=== PATIENT | female | born 1995 | race Caucasian/White ===

== ENCOUNTER → 2016-04-10 17:36 | Observation (INO) ==
[2016-04-10 16:47] VITALS: BP 131/72
--- NOTE | 2016-04-10 17:20 | OB/GYN Progress Note ---
Date of Encounter: 04/10/16 Time of Encounter: 17:18 - Assessment and Plan (1) 39 weeks gestation of Current Visit: Yes Status: Acute NST reactive. No cervical change since last visit. movement noted once in L&D. Discharge home with precautions. (2) Decreased movement Current Visit: Yes Status: Acute (3) False labor Current Visit: Yes Status: Acute Subjective - Subjective Interval history: 20 year-old presenting at 39 weeks with c/o contractions and decreased movement. She reports that the baby started moving since she arrived to triage. No bleeding or LOF. No other complaints. Antepartum ROS: contractions, no loss of fluid, no vaginal bleeding, no movement normal Objective - Vital Signs Vital Signs: Vital Signs Temp Pulse Resp BP 04/10/16 16:46 97.1 F L 114 16 131/72 Intake and Output 04/10/16 04/10/16 04/10/16 07:59 15:59 23:59 Other: Weight 129 kg Patient Weight 04/10/16 23:59 Weight 129 kg - Exam FHR: category 1 FHR comments: 135 BPM, reactive NST Abdomen: Present: soft, gravid. Absent: tenderness Uterus: Present: normal. Absent: tenderness Cervical dilation: ft
== END | disposition home or self-care (01) ==
LOC: 1NENULAB
PROVIDERS: ADMIT Obstetrics & Gynecology; ATTEND Obstetrics & Gynecology

== ENCOUNTER 2016-04-12 14:43 | Inpatient (IN) ==
[2016-04-12] MEDS ORDERED: Naloxone 0.4 MG/ML INJ IVP PRN (14:50)
[2016-04-12] MEDS ORDERED: Famotidine 20 MG/2 ML VIAL IVP PRN (14:50)
[2016-04-12] MEDS ORDERED: Ondansetron 4 MG/2 ML VIAL IVP PRN (14:50)
[2016-04-12] MEDS ORDERED: Acetaminophen 325 MG TABLET PO PRN (14:54)
[2016-04-12] MEDS ORDERED: Ringers Solution, Lactated 1,000 ML IVC SCH (15:00)
[2016-04-12 15:29] LABS: Basophils % 0.2 %; Eosinophils # 0.2 K/mcL (0.0-0.6); Eosinophils % 1.7 %; Hematocrit 30.7 % (35.3-44.9); Hemoglobin 9.6 g/dL (11.5-15.4); Immature Granulocytes % 0.9 % (0-4); Lymphocytes # 1.6 K/mcL (0.6-4.6); Lymphocytes % 16.2 %; Mean Corpuscular HGB Conc 31.3 g/dL (31.6-35.5); Mean Corpuscular Hemoglobin 24.9 pg (28.0-33.3); Mean Corpuscular Volume 79.7 fL (83.0-100.0); Mean Platelet Volume 9.7 fL (9.4-12.4); Monocytes # 0.7 K/mcL (0.0-1.3); Monocytes % 7.5 %; Neutrophils # 7.2 K/mcL (1.6-8.9); Platelet Count 246 K/mcL (140-400); Red Blood Count 3.85 M/mcL (3.82-4.97); Red Cell Distribution Width 15.2 % (11.5-14.5); Segmented Neutrophils % 73.5 %
--- NOTE | 2016-04-12 15:46 | OB/GYN History & Physical ---
Date of Encounter: 04/12/16 Time of Encounter: 15:42 Assessment and Plan (1) Oligohydramnios in torres in third trimester Current visit: Yes Status: Acute (2) 40 weeks gestation of Current visit: Yes Status: Acute admit for IOL for borderline oligohydramnios. Will initiate induction with cytotec at midnight. Pt may eat, p-lock, and ambulate, with ambien at HS Plan discussed with Dr. Santiago. History of Present Illness Chief complaint: admit for IOL HPI: Ms. Willett is a 20 year old female presents for induction due to boarderline oligohydramnios and term gestation. Pt states feels well + movement, denies leaking of fluid or vaginal bleeding. Uncomplicated course. CNM patient. Labs: B-, Rubella immune, serologies negative Past Med Surg Social Fam HX - Past Medical History Source: patient Medical history: no medical history, asthma (as child but no medication or attacks as adult) Psychiatric history: no psych history - Past Surgical History Surgical History: no surgical history - Social History Smoking Status: Never smoker Smokeless Tobacco Status: No Alcohol use: none Drug use: none - Family History Mother Living Status: Still Living Obstetrical History - Pregnancies : 4 Para: 0 Term: 0 : 0 Ab's: 3 Livin Medications and Allergies Caplet 1 / PO DAILY 09/22/15 [History] Allergies codeine Adverse Reaction (Verified 06/22/15 19:20) Vomiting Review of System OB All systems PM: reviewed and no additional remarkable complaints except as stated Exam - Constitutional Constitutional: well developed, well nourished, no acute distress - Neck Neck exam: full ROM - Lungs Respiratory exam: CTAB - Cardiovascular Cardiovascular exam: RRR, +S1, +S2 - Abdomen Abdomen: Present: bowel sounds normal, gravid, non tender - Extremities Extremities exam: normal inspection - Uterus Uterus exam: Present: normal size, normal contour - Comments Comments: FHT 125/+accels/- decels/ Cat I tracing Results Result Diagrams: 04/12/16 15:15 Abnormal lab results Hgb 9.6 g/dL (11.5-15.4) L 04/12/16 15:15 Hct 30.7 % (35.3-44.9) L 03/02/17 15:15 MCV 79.7 fL (83.0-100.0) L 04/12/16 15:15 MCH 24.9 pg (28.0-33.3) L 04/12/16 15:15 MCHC 31.3 g/dL (31.6-35.5) L 04/12/16 15:15 RDW 15.2 % (11.5-14.5) H 04/12/16 15:15 All other labs normal. - VTE Reasons for not Prescribing Prophylaxis: Treatment not Indicated - Low risk for VTE
[2016-04-13] MEDS ORDERED: miSOPROStol 25 MCG TABLET VG PRN (00:01)
[2016-04-13] MEDS ORDERED: Penicillin G Potassium 5,000,000 UNIT in D5% in Water (Mini-Bag+) 100 ML IVPB ONE (00:01)
[2016-04-13] MEDS: Penicillin G Potassium 2,500,000 UNIT in D5% in Water 100 ML IVPB SCH ×4 (04:08→16:46)
--- NOTE | 2016-04-13 06:03 | OB Labor Progress Note ---
Date of Encounter: 04/13/16 Time of Encounter: 06:02 Labor Progress Note - Subjective Subjective: Pt reports minimal discomfort with contractions. - Cervix Cervix: 3/80/-1 - Heart Tones Heart Tones: Category I - Kaylor Kaylor: 2-4 minutes - Interventions Interventions: Nicholson balloon placement attempted using sterile technique. AROM inadvertently performed. Nicholson removed. IUPC placed. - Plan Plan: Continue to monitor. Frequent repositioning. Epidural when requested. Anticipate .
[2016-04-13] MEDS ORDERED: Ringers Solution, Lactated 500 ML IVC ONE (07:00)
[2016-04-13] MEDS ORDERED: Epidural Premix (fent/bupiv) 110 ML EP SCH (07:00)
[2016-04-13] MEDS ORDERED: *HR* Ropivacaine/PF 0.2% 10 ML AMPUL EP ONE (07:00)
[2016-04-13] MEDS ORDERED: *HR* FentaNYL (PF) 100 MCG/2 ML VIAL EP ONE (07:00)
[2016-04-13] MEDS ORDERED: EPHEDrine 50 MG/ML VIAL IVP PRN (07:00)
--- NOTE | 2016-04-13 07:00 | Anesthesia Evaluation PreOp ---
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 No family history of issues.) : Yes Alcohol Use: none Drug use: none Medications and Allergies Caplet 1 / PO DAILY 09/22/15 [History] Allergies codeine Adverse Reaction (Verified 06/22/15 19:20) Vomiting - Meds/Allergy Pre-op Review Medications Reviewed: Yes Allergies Reviewed: Yes Beta Blockers on Current Med List: No Anesthesia Results - Labs 04/12/16 15:15 Anesthesia Exam Last Vital Signs Temp 98.0 F 04/12/16 15:29 Pulse 95 04/12/16 15:29 Resp 14 04/12/16 15:29 BP 131/63 04/12/16 15:29 Pulse Ox 99 04/12/16 15:29 Height: 1.68m Weight: 128.2kg NPO (# of Hours): >4 Pain Scale: 8 Pain Scale Used: Numeric (1 - 10) - HEENT Pupil (Motor): Pupils equal Mallampati: II Teeth: Normal Oral Opening: Greater than 3 - JETTING MACHINE OPERATOR LOC: Oriented JETTING MACHINE OPERATOR Motor: Normal RUE, Normal LUE, Normal RLE, Normal LLE, Normal Face JETTING MACHINE OPERATOR Sensory: Normal: RUE, LUE, RLE, LLE, Face - Cardiac Rhythm: Regular Murmur: None JVD: No Carotid Bruit: No - Pulmonary Breath Sounds: bilateral Clear Respiratory Effort: Symmetrical Anesthesia Assess/Plan ASA Score: 2 Modified [place] Scale for Level of Consciousness: Cooperative, oriented, and tranquil Anesthetic Plan: Regional Autologous Blood: Yes Monitoring Plan: Standard Monitors Recovery Plan: Other
[2016-04-13] MEDS ORDERED: *HR* FentaNYL (PF) 100 MCG/2 ML VIAL ONE (07:03)
[2016-04-13] MEDS ORDERED: Epidural Premix (fent/bupiv) 110 ML EP ONE ×2 (07:03→14:37)
[2016-04-13] MEDS ORDERED: *HR* Ropivacaine/PF 0.2% 10 ML AMPUL ONE (07:03)
--- NOTE | 2016-04-13 08:00 | Anesthesia Procedures ---
Date of Encounter: 04/13/16 Time of Encounter: 07:58 Procedures: Anesthesia - Epidural/Spinal Patient ID/Chart reviewed: Yes Patient examined: Yes OB Eval: Gestational age: 40 OB Eval: : 4 OB Eval: Hx Para: 0 OB Eval: Dilated at (cm): 4 OB Eval: Contractions: Non-stressed pattern Consent Obtained: Yes Supplemental Oxygen: None/Room Air Site Prep: Aseptic Technique, Sterile prep and drape, Povidone-Iodine 1% Patient position: upright Local Anesthetic: Lidocaine 1% Amount of Local Anesthetic used: 3 Touhy Needle Gauge: 18 Touhy Needle Depth (cm): 9 Catheter Depth at Skin (cm): 15 Test Dose (1.5% Lido + Epi): Volume given (mls): 5 Test Dose Result: Negative Loading Dose: Other: 5ml of 0.2%rop/100mcg fentanyl Loading Dose Administered: Thru Catheter Infusion Med: 0.125% Bupivacaine w/ 2 mcg/ml Fentanyl Infusion Rate (mls/hr): 14 ([id number]) Catheter Secured in Place: Tegaderm, Tape Interspace Used: L4-L5 Loss of Resistance (ROSE): Yes Blood: No CSF: No Paresthesia: No Procedure: pt tolerated procedure well. no complications. vss. fhr stable 117/72 hr 86 121/82 hr 92 123/76 hr 101 fhr 125, 126, 128
[2016-04-13] MEDS ORDERED: Oxytocin 20 units/ LR 1000 mL 20 UNIT/1,000 ML BAG IVC SCH (09:15)
--- NOTE | 2016-04-13 13:12 | OB Labor Progress Note ---
Date of Encounter: 04/13/16 Time of Encounter: 13:10 Labor Progress Note - Subjective Subjective: Patient resting comfortable in bed with epidural in place. Discussed POC with patient. Patient denies any questions or concerns. - Cervix Cervix: 4.5/100/-1 - Heart Tones Heart Tones: 120 bpm moderate variability +15x15 accels no decels noted. - Jud Jud: 2-3 min apart - Interventions Interventions: SVE, repositioning with peanut ball. - Plan Plan: Continue labor management.
--- NOTE | 2016-04-13 16:08 | OB Labor Progress Note ---
Date of Encounter: 04/13/16 Time of Encounter: 16:06 Labor Progress Note - Subjective Subjective: Patient resting comfortably with epidural in place. Pitocin at 4 milliunits. - Cervix Cervix: 6/100/0 - Heart Tones Heart Tones: 135 bpm moderate variability +15x15 accels no decels noted. CAt. 1 tracing. - Laconia Laconia: 2-3 min apart - Interventions Interventions: SVE, patient repositioned with peanut ball at this time. - Plan Plan: Continue labor management.
[2016-04-13] MEDS ORDERED: Lidocaine 1% 20 ML MDV ONE (19:10)
[2016-04-13] MEDS ORDERED: Methylergonovine 0.2 MG/ML AMPUL IM ONE (19:41)
--- NOTE | 2016-04-13 19:46 | OB/GYN Procedure Note ---
Delivery - Delivery Date: 04/13/16 Provider: Berenice Dickey (Dr. Whitfield at bedside) Intrapartum events: none Delivery induction: AROM, oxytocin, misoprostol Delivery monitor: external FHT, external uterine, internal uterine Anesthesia: local, epidural Estimated Blood Loss: 400 - (s) A Infant Delivery Date: 04/13/16 Delivery Time: 19:13 Presentation: vertex Position: CALLIE Route of delivery: Gender: Female Viability: Viable Pounds: 8 Ounces: 5 Weight Gram: 3785 kg at 1 minute: 8 at 5 mins: 9 Shoulder Dystocia: not encountered Specimens collected: cord blood Placenta: spontaneous Cord: 3 umbilical vessels - Repair Episiotomy: none Laceration Description: Periurethral, Labial (left labial repaired with 4-0 vicryl.) - Complications Delivery complications: none Delivery comments: Called to LDR, patient reports she needs to push. Anterior cervix noted but was reduced with 1 push. Patient was placed in stirrups and began pushing with contractions. After approximately 60 min head was however retracted back in after pushing. Dr. Whitfield was called to LDR for potential shoulder dystocia. Patient spontaneously delivery a female . No nuchal, shoulder dystocia noted, terminal meconium noted. Infant was placed on maternal abdomen. Cord was clamped and cut after pulsation ceased. was placed skin to skin. A right periurethral laceration noted that was hemostatic and left labial that was repaired with 4-0 vicryl. 1% lidocaine was used to anesthetize site. Patient tolerated well. Placenta delivered spontaneously a Large gush of blood followed delivery of placenta. Uterus was massaged, IV pitocin bolus was started and methergine was given IM. Both Mother and are stable in LDR for recovery. - Disposition Mom disposition: stable in LDR disposition: stable in LDR
[2016-04-13] MEDS ORDERED: Benzocaine/Menthol 56 GM AEROSOL SPRAY TP PRN (21:28)
[2016-04-13] MEDS ORDERED: Lanolin 7 G OINT...G. TP PRN (21:28)
[2016-04-13] MEDS ORDERED: Rho Immune Globulin 1,500 UNIT SYRINGE IM PRN (23:19)
[2016-04-13] MEDS ORDERED: Acetaminophen 325 MG TABLET PO PRN (23:19)
[2016-04-13] MEDS ORDERED: Ondansetron ODT 4 MG TAB.RAPDIS SL PRN (23:25)
[2016-04-13] MEDS ORDERED: Oxytocin 20 units/ LR 1000 mL 20 UNIT/1,000 ML BAG IV SCH (23:30)
[2016-04-14 02:59] LABS: Basophils % 0.1 %; Eosinophils % 0.1 %; Hematocrit 25.7 % (35.3-44.9); Hemoglobin 8.1 g/dL (11.5-15.4); Immature Granulocytes % 0.6 % (0-4); Immature Platelets 3.2 % (1.1-6.1); Lymphocytes # 1.3 K/mcL (0.6-4.6); Lymphocytes % 6.6 %; Mean Corpuscular HGB Conc 31.5 g/dL (31.6-35.5); Mean Corpuscular Hemoglobin 25.1 pg (28.0-33.3); Mean Corpuscular Volume 79.6 fL (83.0-100.0); Mean Platelet Volume 9.7 fL (9.4-12.4); Monocytes % 7.9 %; Neutrophils # 16.6 K/mcL (1.6-8.9); Platelet Count 232 K/mcL (140-400); Red Blood Count 3.23 M/mcL (3.82-4.97); Red Cell Distribution Width 15.2 % (11.5-14.5); Segmented Neutrophils % 84.7 %
[2016-04-14 03:00] LABS: Monocytes # 1.6 K/mcL (0.0-1.3)
[2016-04-14] MEDS ORDERED: Prenatal Vit/FA 1 EACH TABLET PO SCH (09:00)
--- NOTE | 2016-04-14 09:01 | Discharge Summary ---
Date of Encounter: 04/14/16 Time of Encounter: 08:57 - Discharge Diagnosis (1) Vaginal delivery Priority: Primary Status: Acute Comments: Continue routine care discharge home today follow up with LUNA Ng in 4-6 weeks (2) Breast feeding status of mother Priority: Secondary Status: Acute Comments: support prn (3) Anemia Priority: Secondary Status: Acute Comments: Continue ferrous sulfate BID Qualifiers: Anemia type: unspecified type Qualified Code(s): D64.9 - Anemia, unspecified - Discharge Medications Prescriptions: Ibuprofen 800 mg PO Q8HR PRN #60 tablet PRN Reason: Pain Breast Pump [BREAST PUMP] 1 each .ROUTE AD #1 each Ferrous Sulfate 325 mg PO BIDWM #60 tablet Home Medications: Caplet 1 / PO DAILY 09/22/15 [History] Breast Pump [BREAST PUMP] 1 each .ROUTE AD #1 each 04/14/16 [Rx] Ferrous Sulfate 325 mg PO BIDWM #60 tablet 04/14/16 [Rx] Ibuprofen 800 mg PO Q8HR PRN #60 tablet 04/14/16 [Rx] Vit/FA 1 each PO DAILY tablet 04/14/16 [Rx] Allergies/Adverse Reactions: Allergies codeine Adverse Reaction (Verified 06/22/15 19:20) Vomiting Data Procedures and tests throughout hospitalization: Laboratory Tests 04/12/16 04/14/16 15:15 02:51 WBC 9.8 19.6 H D RBC 3.85 3.23 L Hgb 9.6 L 8.1 L D Hct 30.7 L 25.7 L MCV 79.7 L 79.6 L MCH 24.9 L 25.1 L MCHC 31.3 L 31.5 L RDW 15.2 H 15.2 H Plt Count 246 232 MPV 9.7 9.7 Immature Gran % 0.9 0.6 Seg Neutrophils % 73.5 84.7 Lymphocytes % 16.2 6.6 Monocytes % 7.5 7.9 Eosinophils % 1.7 0.1 Basophils % 0.2 0.1 Neutrophils # 7.2 16.6 H Lymphocytes # 1.6 1.3 Monocytes # 0.7 1.6 H Eosinophils # 0.2 0.0 Basophils # 0.0 0.0 Immature Plt Fraction 3.2 Labs on day of discharge: Labs from last 24 hours 04/14/16 02:51 WBC 19.6 H D RBC 3.23 L Hgb 8.1 L D Hct 25.7 L MCV 79.6 L MCH 25.1 L MCHC 31.5 L RDW 15.2 H Plt Count 232 MPV 9.7 Immature Gran % 0.6 Seg Neutrophils % 84.7 Lymphocytes % 6.6 Monocytes % 7.9 Eosinophils % 0.1 Basophils % 0.1 Neutrophils # 16.6 H Lymphocytes # 1.3 Monocytes # 1.6 H Eosinophils # 0.0 Basophils # 0.0 Immature Plt Fraction 3.2 Date of admission: 04/12/16 14:43 Primary care physician: PCP NO Consults: 04/13/16 23:20 Consult to Marine Electrician Helper [CONS] Routine Comment: Vaginal delivery, consult needed Discharging clinician: Berenice Dickey Anticipated date of discharge: 04/14/16 - Patient Status Disposition: Home, Self-Care Condition: Good Functional capacity at discharge: independent ambulation - Discharge Instructions Follow Up With: KATERINA,PCP [Primary Care Provider] - Berenice Dickey CNM [Non-Partnered Physician] - - Diet and Activity Activity: increase activity as tolerated Diet: regular diet Hospital Course Reason for admission: induction of labor Delivery: Episiotomy: none Laceration: other (right periurethral and left labial) complications: none Discharge diagnosis: IUP at term delivered Ducor baby: female (breast feeding) Time Attestation: Total time spent providing and/or coordinating discharge services: Time Spent: Less than 30 minutes Exam - Constitutional Vitals: Temp Pulse Resp BP Pulse Ox 98.4 F 97 16 97/62 97 04/14/16 07:30 04/14/16 07:30 04/14/16 07:30 04/14/16 07:30 04/14/16 03:13 General appearance IM: A&O X 3, pleasant, obese, answers questions appropriately - Respiratory Respiratory exam: Present: CTAB - Cardiovascular Cardiovascular exam IM: Present: RRR, +S1, +S2 - GI/Abdominal GI/Abdominal exam IM: normal bowel sounds - Uterine Tone: Firm Uterus Position: 1 Finger Below Umbilicus, Midline - Extremities Exam Extremities exam IM: Present: full ROM, normal capillary refill, normal inspection - Neurological Exam Additional comments: Patient denies feeling dizzy or light headed with ambulation.
[2016-04-14] MEDS ORDERED: Ibuprofen 600 MG TABLET PO PRN (09:08)
[2016-04-14] MEDS ORDERED: Rho Immune Globulin 1,500 UNIT SYRINGE IM PRN (15:40)
[2016-04-14 16:00] VITALS: BP 108/70
[2016-04-14] MEDS ORDERED: Methylergonovine 0.2 MG/ML AMPUL IM ONE (20:59)
== END 2016-04-14 21:00 | disposition home or self-care (01) | DRG 775 ==
LOC: 1NENULAB → OBSVTOIN 14:43 → 1NENUOBS 04-13 21:53

== ENCOUNTER 2019-05-05 21:37 | Inpatient (IN) ==
[~2019-05-05 21:37] MED LIST: *HR* FentaNYL (PF) 100 MCG/2 ML VIAL IVP PRN; Famotidine 20 MG/2 ML VIAL IVP PRN; Lidocaine 1% 20 ML MDV INFILT PRN; Metoclopramide 10 MG/2 ML VIAL IVP PRN; Naloxone 0.4 MG/ML INJ IVP PRN
[2019-05-05] MEDS ORDERED: Ringers Solution, Lactated 1,000 ML IVC SCH (21:45)
[2019-05-05 22:06] LABS: Basophils % 0.2 %; Eosinophils # 0.3 K/mcL (0.0-0.6); Eosinophils % 2.6 %; Hematocrit 33.6 % (35.3-44.9); Hemoglobin 10.4 g/dL (11.5-15.4); Immature Granulocytes % 0.4 % (0-4); Lymphocytes # 1.6 K/mcL (0.6-4.6); Lymphocytes % 16.1 %; Mean Corpuscular Hemoglobin 26.1 pg (28.0-33.3); Mean Corpuscular Volume 84.4 fL (83.0-100.0); Mean Platelet Volume 9.6 fL (9.4-12.4); Monocytes # 0.8 K/mcL (0.0-1.3); Monocytes % 8.6 %; Platelet Count 209 K/mcL (140-400); Red Blood Count 3.98 M/mcL (3.82-4.97); Red Cell Distribution Width 17.1 % (11.5-14.5); Segmented Neutrophils % 72.1 %; White Blood Count 9.7 K/mcL (4.3-11.1)
[2019-05-05 22:15] LABS: Amphetamine Screen,Urine Negative ng/mL (Cutoff=1000); Barbiturate Screen,Urine Negative ng/mL (Cutoff=200); Benzodiazepines Screen,Urine Negative ng/mL (Cutoff=200); Cannabinoid Screen,Urine Negative ng/mL (Cutoff = 50); Cocaine Screen,Urine Negative ng/mL (Cutoff= 300); Opiate Screen,Urine Negative ng/mL (Cutoff=300); Phencyclidine Screen,Urine Negative ng/mL (Cutoff=25)
[2019-05-05] MEDS ORDERED: EPHEDrine 50 MG/ML VIAL IVP PRN (23:12)
[2019-05-05] MEDS ORDERED: Epidural Premix (fent/bupiv) 110 ML EP SCH (23:15)
[2019-05-06] MEDS ORDERED: *HR* FentaNYL (PF) 100 MCG/2 ML VIAL ONE (01:58)
[2019-05-06] MEDS ORDERED: Measles/Mumps/Rubella Vacc 0.5 ML VIAL SQ PRN (05:24)
[2019-05-06] MEDS ORDERED: Oxytocin 20 units/ LR 1000 mL 20 UNIT/1,000 ML BAG IVC SCH (05:24)
[2019-05-06] MEDS ORDERED: Oxytocin 20 units/ LR 1000 mL 20 UNIT/1,000 ML BAG IVC ONE (05:24)
[2019-05-06] MEDS ORDERED: Acetaminophen 325 MG TABLET PO PRN (05:24)
[2019-05-06] MEDS ORDERED: Rho Immune Globulin 1,500 UNIT SYRINGE IM PRN (05:24)
[2019-05-06] MEDS: Ibuprofen 600 MG TABLET PO PRN ×2 (05:36→15:51)
[2019-05-06] MEDS: Prenatal Vit/FA 1 EACH TABLET PO SCH (07:34)
[2019-05-06] MEDS ORDERED: miSOPROStoL 100 MCG TABLET PO ONE (13:28)
[2019-05-07 05:21] LABS: Basophils % 0.3 %; Eosinophils # 0.3 K/mcL (0.0-0.6); Eosinophils % 2.8 %; Hematocrit 32.8 % (35.3-44.9); Hemoglobin 9.8 g/dL (11.5-15.4); Immature Granulocytes % 0.5 % (0-4); Lymphocytes # 1.9 K/mcL (0.6-4.6); Lymphocytes % 20.3 %; Mean Corpuscular HGB Conc 29.9 g/dL (31.6-35.5); Mean Corpuscular Hemoglobin 25.7 pg (28.0-33.3); Mean Corpuscular Volume 86.1 fL (83.0-100.0); Mean Platelet Volume 9.8 fL (9.4-12.4); Monocytes # 0.7 K/mcL (0.0-1.3); Monocytes % 7.5 %; Neutrophils # 6.4 K/mcL (1.6-8.9); Platelet Count 204 K/mcL (140-400); Red Blood Count 3.81 M/mcL (3.82-4.97); Red Cell Distribution Width 17.3 % (11.5-14.5); Segmented Neutrophils % 68.6 %; White Blood Count 9.4 K/mcL (4.3-11.1)
[2019-05-07 07:52] VITALS: BP 107/79
[2019-05-07] MEDS: Prenatal Vit/FA 1 EACH TABLET PO SCH (08:38)
== END 2019-05-07 12:00 | disposition home or self-care (01) | DRG 806 ==
LOC: 1NENULAB → 1NENUOBS 05-06 05:17
PROVIDERS: ADMIT Advanced Practice Midwife; ATTEND Advanced Practice Midwife